=== PATIENT | male | born 1990 | race Caucasian/White ===

== ENCOUNTER 2016-09-20 17:10 | Emergency (ER) | payer OTHER ==
[2016-09-20] MEDS ORDERED: NS 1,000 ML IV ONE (18:16)
--- NOTE | 2016-09-20 18:45 | UCPHY ---
H & P Patient Type: New Chief Complaint Nursing Narrative: blood in stool for ~ 2 weeks . Denies weakness , lightheadedness or SOB . States has also had months of decreased sleep and waking up sweating in middle of night. Time Seen by Provider: 09/20/16 18:13 HPI/ROS: For 2 weeks this patient is noted intermittent bright red to wine colored blood streaks in stool and a small amount in the toilet bowl. The stool itself appears normal to him. Due to the ongoing symptoms he came in for evaluation. He notes no other associated symptoms. He admits having intermittent external hemorrhoids but has noticed anything significant recently. ROS: No significant fatigue. No fevers. HEENT: No complaints pulmonary: No dyspnea cardiovascular: No lightheadedness. No syncope. GI: No nausea or vomiting. No abdominal pain. : No complaints does report chronic insomnia with no recent change in that. 10 point ROS is otherwise negative Source: Patient Exam Limitations: No limitations - Personal History Current Tetanus Diphtheria and Acellular Pertussis (TDAP): Yes - Medical/Surgical History PMH: Depression and anxiety ADD Hx Diabetes: No Other PMH: Appendectomy. ADD. Anxiety/Depression - Family History Significant Family History: No pertinent family hx - Social History Smoking Status: Never smoked Alcohol Use: None Drug Use: None Additional Social History: His heterosexual- - Physical Exam Exam: General Appearance: Alert, no distress. Eyes: Pupils equal and round no pallor or injection. ENT, Mouth: Mucous membranes moist. Respiratory: There are no retractions, lungs are clear to auscultation. Cardiovascular: Regular rate and rhythm. Gastrointestinal: Abdomen is soft and nontender, no masses, bowel sounds normal. Rectal exam: No significant external hemorrhoids currently. No significant tenderness on exam. No stool in the vault. Prostate normal in size Neurological: Alert with no focal deficits appreciated Skin: Warm and dry, no rashes. Musculoskeletal: Neck is supple nontender. Extremities are symmetrical, full range of motion. Psychiatric: Mildly anxious. Mood and affect of otherwise normal DIFFERENTIAL DIAGNOSIS: After history and physical exam differential diagnosis was considered for internal hemorrhoid, lower GI bleed, inflammatory bowel disease Constitutional: Initial Vital Signs Temperature (C) 37.3 C 09/20/16 17:43 Heart Rate 110 H 09/20/16 17:43 Respiratory Rate 18 03/28/17 17:43 Blood Pressure 120/83 H 09/20/16 17:43 O2 Sat (%) 96 09/20/16 17:43 O2 Delivery Mode Room Air Allergies/Adverse Reactions: No Known Allergies Allergy (Verified 09/20/16 17:48) Home Medications: Medication Instructions Recorded Adderall 20 mg (*) 09/20/16 VENLAFAXINE HCL 09/20/16 Medical Decision Making ED Course/Re-evaluation: Studies: Hemoccult guaiac is negative CBC is normal Comp metabolic panel normal Patient's pulse in triage was 110 on recheck when I was in the room it was 100. Patient reports that 2 days anxiety and medications she often has mild tachycardia. The cause of this patient's intermittent rectal bleeding is unclear. He may have an internal hemorrhoid versus lower GI source. I counseled regarding this encouraged him to follow up with Gastroenterology. He appears clinically well - Data Points Laboratory Results: Laboratory Results 09/20/16 18:35 09/20/16 18:35 09/20/16 09/20/16 09/20/16 18:35 18:35 18:30 WBC 8.73 10^3/uL 10^3/uL (3.80-9.50) RBC 5.24 10^6/uL 10^6/uL (4.40-6.38) Hgb 16.0 g/dL g/dL (13.7-17.5) Hct 44.9 % % (40.0-51.0) MCV 85.7 fL fL (81.5-99.8) MCH 30.5 pg pg (27.9-34.1) MCHC 35.6 g/dL g/dL (32.4-36.7) RDW 11.5 % % (11.5-15.2) Plt Count 193 10^3/uL 10^3/uL (150-400) MPV 9.9 fL fL (8.7-11.7) Neut % (Auto) 54.8 % % (39.3-74.2) Lymph % (Auto) 36.2 % % (15.0-45.0) [place] % (Auto) 8.0 % % (4.5-13.0) Eos % (Auto) 0.2 % L % (0.6-7.6) Baso % (Auto) 0.6 % % (0.3-1.7) Nucleat RBC Rel Count 0.0 % % (0.0-0.2) Absolute Neuts (auto) 4.78 10^3/uL 10^3/uL (1.70-6.50) Absolute Lymphs (auto) 3.16 10^3/uL H 10^3/uL (1.00-3.00) Absolute Monos (auto) 0.70 10^3/uL 10^3/uL (0.30-0.80) Absolute Eos (auto) 0.02 10^3/uL L 10^3/uL (0.03-0.40) Absolute Basos (auto) 0.05 10^3/uL 10^3/uL (0.02-0.10) Absolute Nucleated RBC 0.00 10^3/uL 10^3/uL (0-0.01) Immature Gran % 0.2 % % (0.0-1.1) Immature Gran # 0.02 10^3/uL 10^3/uL (0.00-0.10) Sodium 140 mEq/L mEq/L (134-144) Potassium 3.6 mEq/L mEq/L (3.5-5.2) Chloride 100 mEq/L mEq/L (97-110) Carbon Dioxide 26 mEq/l mEq/l (22-31) Anion Gap 14 mEq/L mEq/L (8-16) BUN 9 mg/dL mg/dL (7-23) Creatinine 0.8 mg/dL mg/dL (0.7-1.3) Estimated GFR > 60 Glucose 84 mg/dL mg/dL (70-100) Calcium 9.5 mg/dL mg/dL (8.5-10.4) Total Bilirubin 0.6 mg/dL mg/dL (0.1-1.4) AST 27 IU/L IU/L (17-59) ALT 42 IU/L IU/L (21-72) Alkaline Phosphatase 87 IU/L IU/L (38-126) Total Protein 7.5 g/dL g/dL (6.3-8.2) Albumin 4.4 g/dL g/dL (3.5-5.0) Stool Occult Bld Scrn NEGATIVE (NEGATIVE) Medications Given: Discontinued Medications Sodium Chloride (Ns) 1,000 mls @ 0 mls/hr IV ONCE ONE PRN Reason: Wide Open Stop: 09/20/16 18:17 Last Admin: 09/20/16 18:47 Dose: Not Given Departure - Departure Disposition: Home, Routine, Self-Care Clinical Impression: Bloody stool Condition: Good Instructions: Rectal Bleeding (ED) Additional Instructions: Diagnosis: bloody stools Plan: Drink plenty fluids Stay hydrated, consider stool softener if he have any constipation Call Dr. Lemos-religion professor to arrange follow-up appointment for further evaluation Go to the emergency department for any significant worsening despite treatment plan. Referrals: Samuel Lemos MD [Medical Doctor] - As per Instructions - PQRS PQRS Measurement: NA
[2016-09-20 18:48] LABS: % IMMATURE GRANULYOCYTES 0.2 % (0.0-1.1); ABSOLUTE IMMATURE GRANULOCYTES 0.02 10^3/uL (0.00-0.10); ADD DIFF? NO; ADD MORPH? NO; ADD SCAN? NO; ATYPICAL LYMPHOCYTE FLAG 10 (0-99); FRAGMENT RBC FLAG 0 (0-99); HEMATOCRIT 44.9 % (40.0-51.0); LEFT SHIFT FLG 0 (0-99); LIPEMIA HEMOLYSIS FLAG 90 (0-99); MEAN CELL HEMOGLOBIN 30.5 pg (27.9-34.1); MEAN CELL HEMOGLOBIN CONCENTR. 35.6 g/dL (32.4-36.7); MEAN CELL VOLUME 85.7 fL (81.5-99.8); MEAN PLATELET VOLUME 9.9 fL (8.7-11.7); PLATELET CLUMPS FLAG 0 (0-99); PLATELET COUNT 193 10^3/uL (150-400); RED BLOOD CELL COUNT 5.24 10^6/uL (4.40-6.38); RED CELL DISTRIBUTION WIDTH 11.5 % (11.5-15.2)
[2016-09-20 18:55] VITALS: BP 103/78; PULSE 99; RESP 16; TEMP 98.8; O2SAT 98
[2016-09-20 19:02] LABS: ALANINE AMINOTRANSFERASE 42 IU/L (21-72); ALBUMIN 4.4 g/dL (3.5-5.0); ALKALINE PHOSPHATASE 87 IU/L (38-126); ANION GAP 14 mEq/L (8-16); ASPARTATE AMINOTRANSFERASE 27 IU/L (17-59); BILIRUBIN,TOTAL 0.6 mg/dL (0.1-1.4); CALCIUM 9.5 mg/dL (8.5-10.4); CARBON DIOXIDE 26 mEq/l (22-31); CHLORIDE 100 mEq/L (97-110); CREATININE 0.8 mg/dL (0.7-1.3); GLOMERULAR FILTRATION RATE > 60; GLUCOSE 84 mg/dL (70-100); POTASSIUM 3.6 mEq/L (3.5-5.2); SODIUM 140 mEq/L (134-144); TOTAL PROTEIN 7.5 g/dL (6.3-8.2)
== END 2016-09-20 18:53 | disposition home or self-care (01) ==
LOC: CED 17:10
DX: K92.1 Melena (principal)
CPT/HCPCS: 80053-PO; 82270-PO; 85025-PO; 99204-PO; G0463-PO

== ENCOUNTER 2017-11-26 13:31 | Emergency (ER) | payer MEDICAID ==
[2017-11-26 13:38] VITALS: BP 115/78
--- NOTE | 2017-11-26 13:49 | EDPHY ---
H & P Time Seen by Provider: 11/26/17 13:34 HPI/ROS: CHIEF COMPLAINT: Sore throat History by patient HISTORY OF PRESENT ILLNESS: 27-year-old otherwise healthy man presents complaining of 2 days of increasing sore throat. He has had some seasonal allergies and postnasal drip but no cough. He denies any fever. He denies any abdominal pain. He denies any difficulty breathing but does feel it is difficult to swallow though he is keeping down fluids. He denies any known exposures to strep but is worried he might have strep. He does work part-time in a doctor's office. REVIEW OF SYSTEMS: As in HPI, and all other systems reviewed and are negative Smoking Status: Never smoked Physical Exam: General Appearance: Alert and no distress. Speaking full sentences, no muffled voice Head: normocephalic, atraumatic, no sinus tenderness Eyes: Pupils equal and round no injection. OP: mucus membranes moist, positive erythema, bilateral symmetrical tonsillar enlargement, no exudates Neck: no meningismus, mild left cervical nodes, no submandibular nodes Respiratory: Chest is nontender, lungs are clear to auscultation. No wheezes, rales, rhonchi Cardiac: regular rate and rhythm. S1, S2, no murmurs, gallops, rubs appreciated. Gastrointestinal: Abdomen is soft and nontender, no masses, bowel sounds normal. Musculoskeletal: Neck is supple and nontender. Extremities have full range of motion and are nontender. Skin: No rashes or lesions. Constitutional: Initial Vital Signs Temperature (C) 36.8 C 11/26/17 13:37 Heart Rate 93 11/26/17 13:37 Respiratory Rate 18 11/26/17 13:37 Blood Pressure 115/78 11/26/17 13:37 O2 Sat (%) 98 11/26/17 13:37 O2 Delivery Mode Room Air Allergies/Adverse Reactions: No Known Allergies Allergy (Verified 11/26/17 13:36) Home Medications: Medication Instructions Recorded Effexor Xr 11/26/17 Penicillin V Potassium [Pen Vk 500 mg PO BID 10 Days tab 11/26/17 500mg (*)] Wellbutrin 100mg (*) 11/26/17 MDM/Departure - [facility] ED Course/Re-evaluation: 27-year-old man presents with acute pharyngitis and positive strep PCR. There is no evidence of airway compromise or peritonsillar abscess at this time. Patient be treated with oral antibiotics. We also discussed symptomatic treatment and home care and return precautions. Patient is discharged home in stable condition.. - Depart Disposition: Home, Routine, Self-Care Clinical Impression: Acute streptococcal pharyngitis Condition: Good Instructions: Strep Throat (ED) Additional Instructions: You were seen by Dr. Juany Hinds today. Take antibiotics as prescribed. He may take ibuprofen 600 mg 4 times a day, with meals and at bedtime for pain. Try also warm salt water gargles and warm drinks with honey. Return for any worsening or new concerns. Prescriptions: Penicillin V Potassium [Pen Vk 500mg (*)] 500 mg PO BID 10 Days tab Referrals: Christoph Mari DO [Primary Care Provider] - As per Instructions
== END 2017-11-26 14:28 | disposition home or self-care (01) ==
LOC: CED 13:31
DX: J02.0 Streptococcal pharyngitis (principal)